=== PATIENT | female | born 1980 | race Caucasian/White ===

== ENCOUNTER 2023-12-02 00:24 | Day surgery (SDC) | payer BC, SELFPAY ==
[2023-10-09 14:16] VITALS: BMI 40.6
--- NOTE | 2023-10-09 14:22 | PC.NURSE ---
Report to the Outpatient Waiting Room, entrance under the green pavilion located off [facility], at time 0730 on date 10/21/23. Planned Procedure Time: 0930. Time changes happen often and if your time is changed the preop area will call you the afternoon before. - You and your visitor will be asked to self-screen and do not enter if you have any COVID symptoms. - A mask is optional within the hospital at this time. Patients may have clear liquids (water, carbonated beverages, clear teas, apple juice) until 3 hours prior to surgery with a maximum of 20 ounces. - No food from midnight until time of surgery Take the following medications with a SIP of water the morning of surgery: N/A DO NOT STOP ANY OF YOUR OTHER PRESCRIPTION MEDICATIONS PRIOR TO SURGERY ?EXCEPT THE FOLLOWING Medications to discontinue per physician: N/A Date to take last dose: N/A Please no make-up, nail tamazight, hairspray, perfume, deodorant, or body powder the day of surgery. No jewelry (including any body piercings) or valuables the day of surgery, leave them at home. Please take a shower or bath the night before, or the morning of, surgery with an antibacterial soap. Wear comfortable, loose fitting clothing. - Jewelry must be removed prior to entering the operating room. Rings and piercings that are not removed may be cut off. - The hospital will not accept responsibility for valuables. - Please leave all valuables, including medications, at home the day of surgery. If you are going home after surgery, a licensed line haul truck driver must drive you home. - NO public transportation without another adult if you receive anesthesia. - We recommend that an adult stay with you for 24 hours following discharge. - We also recommend that you do not drive, make important decision, drink alcoholic beverages, or take any drugs that were not prescribed by your health care provider for at least 24 hours after your discharge time. Follow any additional instructions given to you from your surgeon. If you or anyone in your household have experienced Covid symptoms in the past week, please notify your surgeon or the nurse liaison at the phone number below for possible testing. Telephone instructions given to PT - JOAN CHANG and asked if any additional questions and then verbalized understanding. Patient advised to call surgeon office or pre surgery nurse liaison [phone] if any additional questions.
[2023-11-26 14:33] VITALS: BMI 40.6
--- NOTE | 2023-11-26 14:50 | PC.NURSE ---
Report to the Outpatient Waiting Room, entrance under the green pavilion located off [facility], at time __07__ on date __12/02/23 . Planned Procedure Time: _0915_. Time changes happen often and if your time is changed the preop area will call you the afternoon before. - You and your visitor will be asked to self-screen and do not enter if you have any COVID symptoms. - A mask is optional within the hospital at this time. Patients may have clear liquids (water, carbonated beverages, clear teas, apple juice) until 3 hours prior to surgery with a maximum of 20 ounces. - No food from midnight until time of surgery Take the following medications with a SIP of water the morning of surgery: ___N/A DO NOT STOP ANY OF YOUR OTHER PRESCRIPTION MEDICATIONS PRIOR TO SURGERY ?EXCEPT THE FOLLOWING Medications to discontinue per physician TUMERIC AND MAGNESIUM SUPPLEMENT Date to take last dose____11/29/23 Please no make-up, nail khmer, hairspray, perfume, deodorant, or body powder the day of surgery. No jewelry (including any body piercings) or valuables the day of surgery, leave them at home. Please take a shower or bath the night before, or the morning of, surgery with an antibacterial soap. Wear comfortable, loose fitting clothing. - Jewelry must be removed prior to entering the operating room. Rings and piercings that are not removed may be cut off. - The hospital will not accept responsibility for valuables. - Please leave all valuables, including medications, at home the day of surgery. If you are going home after surgery, a licensed stake driver must drive you home. - NO public transportation without another adult if you receive anesthesia. - We recommend that an adult stay with you for 24 hours following discharge. - We also recommend that you do not drive, make important decision, drink alcoholic beverages, or take any drugs that were not prescribed by your health care provider for at least 24 hours after your discharge time. Follow any additional instructions given to you from your surgeon. If you or anyone in your household have experienced Covid symptoms in the past week, please notify your surgeon or the nurse liaison at the phone number below for possible testing. Telephone instructions given to ____NICOLE and asked if any additional questions and then verbalized understanding. Patient advised to call surgeon office or pre surgery nurse liaison [phone] if any additional questions.
[2023-12-02 06:31] VITALS: BP 133/88; PULSE 76; RESP 18; TEMP 36.2; O2SAT 100
[2023-12-02] MEDS: ACETAMINOPHEN 500 MG TABLET 1000 MG PO (06:58)
[2023-12-02] MEDS: LACTATED RINGERS 1,000 ML 30 ML IV CONT ×2 (06:58→09:27)
--- NOTE | 2023-12-02 07:04 | WPDANESEPPF ---
Anes - Initial Pre Proc Eval Procedure: Operation Date: 12/02/23 08:30 Proposed Procedures p Hysteroscopy with Dilation and Curettage, Possible Myomectomy - Asmita Blake MD Date/Time: 12/02/23 07:04 Surgeon: Asmita Blake MD Pre Op Diagnosis: Menorrhagia, Fibroids Patient Data Age: 43 Gender: F Height: 1.75 m Weight: 124.7 kg Allergies Allergy/AdvReac Type Severity Reaction Status Date / Time dextromethorphan Allergy Hives Verified 12/02/23 07:15 [From Tylenol Cold Multi-Symptom] guaifenesin Allergy Hives Verified 12/02/23 07:15 [From Tylenol Cold Multi-Symptom] phenylephrine Allergy Hives Verified 12/02/23 07:15 [From Tylenol Cold Multi-Symptom] pseudoephedrine Allergy Hives Verified 12/02/23 07:15 [From Tylenol Cold Multi-Symptom] Home Medications Medication Instructions Recorded Confirmed Type Tumeric 1 tab-cap PO DAILY 11/26/23 12/02/23 History calcium 167 mg-vitamin D3 1.67 1 cap PO DAILY 11/26/23 12/02/23 History mcg-magnesium 83 mg capsule cetirizine 10 mg tablet (Zyrtec) 10 mg PO DAILY 11/26/23 12/02/23 History Patient hx anesthesia problems: none Family hx anesthesia problems: none Results Review: All pre-operative results and documents have been reviewed as part of the pre-operative evaluation. [facility] Past Medical History Medical History (Updated 12/02/23 @ 07:29 by Asmita Blake MD) Fibroid Psoriasis Small fiber neuropathy Social History Social History Smoking status: Never smoker Alcohol intake: current Alcohol use details: SPECIAL OCCASIONS Substance use: never Substance use type: does not use Living arrangements: with family Spiritual care concerns: No Anes - Eval Final PreProcedure Day of Procedure 12/02/23 07:04 Patient weight: morbidly obese Heart: regular rate and rhythm Lungs: clear to auscultation Airway: Mallampati scale class II Neurological: alert and oriented Last oral intake: >/= 8 hours ASA classification: II Emergent: no Anesthetic plan: proceed Anesthesia type and monitoring: general GIVS and standard monitoring Results Review: All pre-operative results and documents have been reviewed as part of the pre-operative evaluation. Informed Consent: The patient's anesthetic plan and its attendant risks and benefits were discussed with the patient/family/POA. Questions were solicited and answers provided to the satisfaction of the patient/family/POA.
--- NOTE | 2023-12-02 07:27 | P.HP_ITS ---
History of Present Illness History of Present Illness Consent: Risks, benefits, and alternatives have been discussed and questions answered. Patient agrees to proceed with procedure. Chief complaint: Menorrhagia, Fibroids Narrative: Valeria Romo is a 43 year old female with heavy cycles lasting up to 10 days. Pelvic ultrasound shows fibroids with a normal size uterus. It was recommended to proceed with D&C hysteroscopy possible myomectomy. Risks of infection, bleeding, perforation, and fluid imbalance are reviewed. Possible pathology was also discussed. Patient voices understanding and agrees to proceed. Review of Systems Review of Systems: not repeated day of surgery; patient states no changes in status [facility] Past Medical History Medical History (Updated 12/02/23 @ 07:29 by Asmita Blake MD) Fibroid Psoriasis Small fiber neuropathy Social History Social History Smoking status: Never smoker Alcohol intake: current Alcohol use details: SPECIAL OCCASIONS Substance use: never Substance use type: does not use Living arrangements: with family Spiritual care concerns: No Meds Home Medications and Allergies Home Medications Medication Instructions Recorded Confirmed Type Tumeric 1 tab-cap PO DAILY 11/26/23 12/02/23 History calcium 167 mg-vitamin D3 1.67 1 cap PO DAILY 11/26/23 12/02/23 History mcg-magnesium 83 mg capsule cetirizine 10 mg tablet (Zyrtec) 10 mg PO DAILY 11/26/23 12/02/23 History Allergies Allergy/AdvReac Type Severity Reaction Status Date / Time dextromethorphan Allergy Hives Verified 12/02/23 07:15 [From Tylenol Cold Multi-Symptom] guaifenesin Allergy Hives Verified 12/02/23 07:15 [From Tylenol Cold Multi-Symptom] phenylephrine Allergy Hives Verified 12/02/23 07:15 [From Tylenol Cold Multi-Symptom] pseudoephedrine Allergy Hives Verified 12/02/23 07:15 [From Tylenol Cold Multi-Symptom] Vital Signs Vital Signs - 24 hr 12/02/23 06:31 Temperature 97.1 F L Pulse Rate 76 Respiratory Rate 18 Blood Pressure 133/88 Pulse Oximetry 100 Oxygen Delivery Room Air Exam Const: General: healthy appearing and alert Orientation/consciousness: patient oriented x3 Resp: Effort & Inspection: normal respiratory effort GI: GI Palp: Yes Soft to palpation, No Tenderness to palpation present (GI) and No Palpable mass present : External Female Exam: normal external appearance Speculum Exam - Vagina: normal appearance of the vagina and normal vaginal discharge Speculum Exam - Cervix: normal appearance of the cervix Bimanual exam- vagina & uterus: uterine size normal and consistency normal Bimanual Exam- Adnexa, other: normal adnexae and No adnexal tenderness Neuro: General: patient oriented x3 Assessment and Plan Assessment and plan (1) Menorrhagia: Code(s): N92.0 - Excessive and frequent menstruation with regular cycle Status: Acute Assessment and Plan: plan to proceed with D&C hysteroscopy
--- NOTE | 2023-12-02 07:27 | WPDHPUPDATE1 ---
History and Physical Update Update Date/Time: 12/02/23 07:27 History and Physical has been reviewed, including an updated exam of the patient. There are NO changes in the patient's condition. Risks, benefits, and alternatives have been discussed and questions answered. Patient agrees to proceed with procedure.
[2023-12-02] MEDS: FERRIC SUBSULFATE 8 ML SOLUTION WITH APPLICATOR TOPICAL (09:19)
--- NOTE | 2023-12-02 09:23 | P.OP_ITS ---
Procedure Note - Detailed Date of Procedure 12/02/23 Pre-op Diagnosis Menorrhagia, Fibroids Post-op Diagnosis Same Procedure Performed D&C hysteroscopy with partial myomectomy Surgeon Asmita Blake MD Anesthesia MAC Findings The cervix has a 1cm polyp. The cervix is stenotic. The uterus sounds to 11cm. There was a large sessile fibroid on anterior fundus. Description of Procedure The patient is taken to the operating room and placed under anesthesia in the dorsal lithotomy position. She was prepped and draped in usual sterile fashion. [place] speculum was placed in the vagina and the cervix grasped on the anterior lip with a tenaculum. A large cervical polyp was grasped with a ring forcep and excised. The uterus was attempted to be sounded but cervical stenosis is encountered. The os Finders are used and the cervix still not passable. The Hegar dilators were used and the cervix is still not passable. The small Aveeta hysteroscope was placed and through hydrodissection the cavity is able to be entered. Using the medium Aveeta resection device the fibroid was began to be resected. This did not appear to be very successful and the hysteroscope was changed to the large Ariella Aveeta hysteroscope with the larger resection device. The fibroid was removed approximately 50% when the fluid imbalance became 1L. The hysteroscopic portion of the procedure then ceased and instruments were removed the myoma graspers are used and several additional pieces of fibroid are removed. Once no further pieces were able to be grasped with the myoma graspers, the sharp curette is used to curette the endometrium until a good uterine cry was noted in all areas. The tenaculum site required Monsel solution for hemostasis. All vaginal instruments are removed and the patient taken to recovery in stable condition. Sponge, needle, and instrument counts are correct per the OR staff. Estimated Blood Loss 50 Drains No Packing No Pathology Yes ( Cervical polyp; endometrial shavings, myoma pieces, and curettings) Complications Other complications ( fluid imbalance) Condition Stable Disposition PACU
[2023-12-02 09:27] VITALS: BP 128/90; PULSE 76; RESP 20; O2SAT 95
[2023-12-02] MEDS: fentaNYL CITRATE INJ (*CRX) 100 MCG/2 ML VIAL 25 MCG IV PUSH ×6 (09:28→09:46)
[2023-12-02 09:50] VITALS: BP 128/68; PULSE 67; RESP 18; O2SAT 98
[2023-12-02] MEDS: oxyCODONE HCL (*CRX) 5 MG TAB IR PO (10:04)
[2023-12-02 10:15] VITALS: BP 155/91; PULSE 78; RESP 18; O2SAT 98
[2023-12-02 10:35] VITALS: BP 148/80; PULSE 67; RESP 16
== END 2023-12-02 10:48 | disposition home or self-care (01) ==
PROVIDERS: PCP Physician Assistant; Visit Provider Obstetrics & Gynecology Gynecology
PROC: 0U5B8ZZ Destruction of Endometrium, Via Natural or Artificial Opening Endoscopic (ICD-10-PCS; CPT 58563; principal; 2023-12-02 08:30)
DX: N92.0 Excessive and frequent menstruation with regular cycle (principal); N84.0 Polyp of corpus uteri; D25.9 Leiomyoma of uterus, unspecified; E66.9 Obesity, unspecified; Z68.38 Body mass index [BMI] 38.0-38.9, adult
CPT/HCPCS: 58561; 88305; A9270; J1100; J1885; J2250; J2405; J2704; J3010; J7120

== ENCOUNTER 2024-08-17 00:06 | Day surgery (SDC) | payer BC, SELFPAY ==
[2024-08-10 09:15] VITALS: BMI 35.3
--- NOTE | 2024-08-10 09:21 | PC.NURSE ---
Report to the Outpatient Waiting Room, entrance under the green pavilion located off [facility], at time _0815_ on date _[id number]_. Planned Procedure Time: _1015_.? Time changes happen often and if your time is changed the preop area will call you the afternoon before. - You and your visitor will be asked to self-screen and do not enter if you have any COVID symptoms. Please call surgeon if you need to reschedule. - A mask is optional within the hospital at this time. Patients may have clear liquids (water, carbonated beverages, clear teas, apple juice) until 3 hours prior to surgery with a maximum of 20 ounces. - No food from midnight until time of surgery and no smoking Take only the following medications with a SIP of water on the morning of surgery: __None DO NOT STOP ANY OF YOUR OTHER PRESCRIPTION MEDICATIONS PRIOR TO SURGERY EXCEPT THE FOLLOWING Medications to discontinue per physician Vitamins Date to take last swzc____[id number]____ Please no make-up, nail canadian, hairspray, perfume, deodorant, or body powder the day of surgery.? No jewelry (including any body piercings) or valuables the day of surgery, leave them at home.? Please take a shower or bath the night before, or the morning of, surgery with an antibacterial soap.? Wear comfortable, loose fitting clothing.? - Jewelry must be removed prior to entering the operating room.? Rings and piercings that are not removed may be cut off. - The hospital will not accept responsibility for valuables.? - Please leave all valuables, including medications, at home the day of surgery. If you are going home after surgery, a licensed farm truck driver must drive you home.? - NO public transportation without another adult if you receive anesthesia. - We recommend that an adult stay with you for 24 hours following discharge. - We also recommend that you do not drive, make important decision, drink alcoholic beverages, or take any drugs that were not prescribed by your health care provider for at least 24 hours after your discharge time. Follow any additional instructions given to you from your surgeon. Telephone instructions given to __Chadki__and asked if any additional questions and then verbalized understanding. Patient advised to call surgeon office or pre surgery nurse liaison [phone] if any additional questions.
--- NOTE | 2024-08-17 07:21 | WPDHPUPDATE1 ---
History and Physical Update Update Date/Time: 08/17/24 07:21 History and Physical has been reviewed, including an updated exam of the patient. There are NO changes in the patient's condition. Risks, benefits, and alternatives have been discussed and questions answered. Patient agrees to proceed with procedure.
--- NOTE | 2024-08-17 07:21 | PM.HPGS ---
History of Present Illness History of Present Illness Consent: Risks, benefits, and alternatives have been discussed and questions answered. Patient agrees to proceed with procedure. Chief complaint: fibroids Narrative: Valeria Romo is a 43 year old female With a known submucosal fibroid. Patient underwent hysteroscopic resection of part of the fibroid in November of 2023. Due to fluid imbalance, the fibroid was not removed in its entirety. The postoperative options were discussed with the patient and she chose to proceed with my February. Patient did not take Myfembree and wished to proceed with oral contraceptives. The patient did not take oral contraceptives. The patient returned in July of 2024 and stating her cycles were initially doing better but the past cycle was very heavy and long with increased cramping. Options were again reviewed. Patient wished to proceed with hysteroscopy and attempt to remove the rest of the fibroid. Risks of the procedure were again reviewed including infection, bleeding, perforation, and inability to remove the entire fibroid due to fluid imbalance. Possible pathology was also discussed. Patient voices understanding and agrees to proceed. Review of Systems Review of Systems: not repeated day of surgery; patient states no changes in status [facility] Past Medical History Medical History (Updated 08/17/24 @ 07:25 by Asmita lBake MD) Fibroid Psoriasis Small fiber neuropathy Surgical History Surgical History (Updated 08/17/24 @ 07:24 by Asmita Blake MD) History of hysteroscopy December 11 partial myomectomy Social History Social History Smoking status: Never smoker Alcohol intake: current Alcohol use details: SPECIAL OCCASIONS Substance use: never Substance use type: does not use Living arrangements: with family Spiritual care concerns: No Meds Home Medications and Allergies Home Medications Medication Instructions Recorded Confirmed Type calcium 167 mg-vitamin D3 1.67 1 cap PO DAILY 11/26/23 08/10/24 History mcg-magnesium 83 mg capsule cetirizine 10 mg tablet (Zyrtec) 10 mg PO DAILY 11/26/23 08/10/24 History magnesium glycinate 100 mg (as 300 mg PO HS 08/10/24 08/10/24 History glycinate) tablet Allergies Allergy/AdvReac Type Severity Reaction Status Date / Time dextromethorphan Allergy Hives Verified 08/10/24 09:13 [From Tylenol Cold Multi-Symptom] guaifenesin Allergy Hives Verified 08/10/24 09:13 [From Tylenol Cold Multi-Symptom] phenylephrine Allergy Hives Verified 08/10/24 09:13 [From Tylenol Cold Multi-Symptom] pseudoephedrine Allergy Hives Verified 08/10/24 09:13 [From Tylenol Cold Multi-Symptom] Exam Const: General: healthy appearing and alert Orientation/consciousness: patient oriented x3 Resp: Effort & Inspection: normal respiratory effort : External Female Exam: normal external appearance Speculum Exam - Vagina: normal appearance of the vagina and normal vaginal discharge Speculum Exam - Cervix: normal appearance of the cervix Bimanual exam- vagina & uterus: uterine size normal and consistency normal Bimanual Exam- Adnexa, other: normal adnexae and No adnexal tenderness Neuro: General: patient oriented x3 Assessment and Plan Assessment and plan (1) Menorrhagia: Code(s): N92.0 - Excessive and frequent menstruation with regular cycle Status: Acute Assessment and Plan: plan to proceed with hysteroscopy (2) Fibroid: Code(s): D21.9 - Benign neoplasm of connective and other soft tissue, unspecified Status: Acute Assessment and Plan: plan to proceed with hysteroscopic myomectomy
[2024-08-17] MEDS: ACETAMINOPHEN 500 MG TABLET 1000 MG PO (08:50)
[2024-08-17 09:00] VITALS: BMI 37.3
--- NOTE | 2024-08-17 09:03 | P.PNAN_ITS ---
Anes - Initial Pre Proc Eval Procedure: Operation Date: 08/17/24 10:15 Proposed Procedures p Hysteroscopy, Fibroid Resection - Asmita Blake MD Date/Time: 08/17/24 09:03 Surgeon: Asmita Blake MD Pre Op Diagnosis: fibroids Patient Data Age: 43 Gender: F Height: 1.75 m Weight: 108.6 kg Allergies Allergy/AdvReac Type Severity Reaction Status Date / Time dextromethorphan Allergy Hives Verified 08/10/24 09:13 [From Tylenol Cold Multi-Symptom] gabapentin Allergy Hives Verified 08/17/24 08:23 guaifenesin Allergy Hives Verified 08/10/24 09:13 [From Tylenol Cold Multi-Symptom] phenylephrine Allergy Hives Verified 08/10/24 09:13 [From Tylenol Cold Multi-Symptom] pregabalin [From Lyrica] Allergy Blurry Verified 08/17/24 08:23 Vision pseudoephedrine Allergy Hives Verified 08/10/24 09:13 [From Tylenol Cold Multi-Symptom] Home Medications Medication Instructions Recorded Confirmed Type calcium 167 mg-vitamin D3 1.67 1 cap PO DAILY 11/26/23 08/10/24 History mcg-magnesium 83 mg capsule cetirizine 10 mg tablet (Zyrtec) 10 mg PO DAILY 11/26/23 08/17/24 History magnesium glycinate 100 mg (as 300 mg PO HS 08/10/24 08/10/24 History glycinate) tablet Patient hx anesthesia problems: none Family hx anesthesia problems: none Results Review: All pre-operative results and documents have been reviewed as part of the pre- operative evaluation. [facility] Past Medical History Medical History (Updated 08/17/24 @ 07:25 by Asmita Blake MD) Fibroid Psoriasis Small fiber neuropathy Surgical History Surgical History (Updated 08/17/24 @ 07:24 by Asmita Blake MD) History of hysteroscopy December 11 partial myomectomy Social History Social History Smoking status: Never smoker Alcohol intake: current Alcohol use details: SPECIAL OCCASIONS Substance use: never Substance use type: does not use Living arrangements: with family Spiritual care concerns: No Anes - Eval Final PreProcedure Day of Procedure 08/17/24 09:03 Patient weight: obese Heart: regular rate and rhythm Lungs: clear to auscultation Airway: Mallampati scale class II Neurological: alert and oriented Last oral intake: >/= 8 hours ASA classification: II Emergent: no Anesthetic plan: proceed Anesthesia type and monitoring: general GIVS and standard monitoring Results Review: All pre-operative results and documents have been reviewed as part of the pre- operative evaluation. Informed Consent: The patient's anesthetic plan and its attendant risks and benefits were discussed with the patient/family/POA. Questions were solicited and answers provided to the satisfaction of the patient/family/POA.
[2024-08-17 09:05] VITALS: BP 138/95; PULSE 73; RESP 18; TEMP 36.6; O2SAT 100
[2024-08-17] MEDS: LACTATED RINGERS 1,000 ML 30 ML IV CONT ×2 (09:15→11:43)
[2024-08-17 11:32] VITALS: BP 137/81; PULSE 67; RESP 14; O2SAT 98
--- NOTE | 2024-08-17 11:32 | P.OP_ITS ---
Procedure Note - Detailed Date of Procedure 08/17/24 Pre-op Diagnosis Menorrhagia, fibroids Post-op Diagnosis Same Procedure Performed hysteroscopic myomectomies Surgeon Asmita Blake MD Anesthesia MAC Findings The uterus sounds to 10cm. There are 2 large anterior fibroids. Remainder of the endometrium appears grossly normal. Description of Procedure The patient was taken to the operating room and placed under anesthesia in the dorsal lithotomy position. She was prepped and draped in usual sterile fashion. [place] speculum was placed in the vagina and the cervix grasped on the anterior lip with a tenaculum. The uterus is sounded to 10cm. The cervix was serially dilated to a 6 Hegar. The large Aveta hysteroscope is placed and with the above-stated findings the Wave Aveta resection device is placed. Under direct visualization the right fibroid was removed almost in its entirety. Under direct visualization the left fibroid was approximately removed by half. The blade appeared to be getting dull and I requested a 2nd blade. In the changeover of this plate the fluid went from a deficit of 570- 600 to 1450 without any working. Attempts to reset the device were not successful. The case was marked complete and a 2nd case restarted. While this was occurring with the staffing, I used myoma graspers and removed several very large pieces of fibroid. When no further fibroid pieces were palpable with the graspers, the staff had the camera restarted. The hysteroscope was placed and the fibroids appear to be absent. The hysteroscope was then removed and all instruments are removed. Sponge, needle, and instrument counts are correct per the OR staff. Fluid deficit is most likely 600cc. The patient was awakened from anesthesia and taken to recovery in stable condition. Estimated Blood Loss 50 Drains No Packing No Pathology Yes ( Endometrial shavings and fibroid pieces) Complications No immediate complications Condition Stable Disposition PACU
[2024-08-17 12:00] VITALS: BP 112/54; PULSE 62; RESP 20
[2024-08-17] MEDS: oxyCODONE HCL (*CRX) 5 MG TAB IR PO (12:00)
[2024-08-17 12:30] VITALS: BP 138/87; PULSE 56; RESP 20
[2024-08-17 14:30] LABS: BEDSIDEPREGUCG Negative (Negative)
[2024-08-17 14:30] LABS: BEDSIDEPREGUCG Negative (Negative)
== END 2024-08-17 12:40 | disposition home or self-care (01) ==
PROVIDERS: PCP Physician Assistant; Visit Provider Obstetrics & Gynecology Gynecology
PROC: 0U5B8ZZ Destruction of Endometrium, Via Natural or Artificial Opening Endoscopic (ICD-10-PCS; CPT 58563; principal; 2024-08-17 10:15)
DX: N92.0 Excessive and frequent menstruation with regular cycle (principal); D25.9 Leiomyoma of uterus, unspecified; E66.9 Obesity, unspecified; Z68.37 Body mass index [BMI] 37.0-37.9, adult
CPT/HCPCS: 58561; 88305; A9270; J1100; J1885; J2250; J2405; J2704; J3010; J7120